=== PATIENT | female | born 1945 | race Caucasian/White ===

== ENCOUNTER → 2017-11-09 | Emergency (ER) | payer MEDICARE, OTHER ==
[~2017-11-09] VITALS: Ht 162.6 cm; Wt 55.0 kg
[~2017-11-09] MED LIST: ALBU18HF2 IH; ASPI-1264 PO; DIPH-423 PO; DIPH25CA83 PO; IBUP-1984 PO; IBUP-1985 PO; LEVO50TA78 PO; PERM60CR4 TP
[2017-11-09 10:01] LABS: BASOPHILS % (AUTO) 0.4 % (0-1); EOSINOPHILS # (AUTO) 0.2 X10'3 (0-0.9); EOSINOPHILS % (AUTO) 2.9 % (0-6); HEMATOCRIT 39.8 % (35.0-45.0); HEMOGLOBIN 13.7 g/dl (12.0-16.0); LYMPHOCYTES # (AUTO) 1.8 X10'3 (1.1-4.8); LYMPHOCYTES % (AUTO) 23.5 % (21-51); MEAN CORPUSCULAR HEMOGLOBIN 32.2 PG (27.0-31.0); MEAN CORPUSCULAR HGB CONC 34.5 % (33.0-36.5); MEAN CORPUSCULAR VOLUME 93.2 FL (78-98); MEAN PLATELET VOLUME 8.1 FL (7.4-10.4); MONOCYTES # (AUTO) 0.5 X10'3 (0-0.9); MONOCYTES % (AUTO) 6.2 % (2-12); NEUTROPHILS # (AUTO) 5.1 X10'3 (1.8-7.7); PLATELET COUNT 200 X10'3 (140-440); RED BLOOD COUNT 4.26 X10'6 (4.20-5.60); RED CELL DISTRIBUTION WIDTH 13.6 % (11.5-14.5); WHITE BLOOD COUNT 7.7 X10'3 (4.5-11.0)
[2017-11-09 10:23] LABS: ALANINE AMINOTRANSFERASE 27 U/L (12-78); ALBUMIN 3.2 G/DL (3.4-5.0); ALBUMIN/GLOBULIN RATIO 0.7 (1.1-1.5); ALKALINE PHOSPHATASE 87 IU/L (46-116); ANION GAP 5 (8-16); ASPARTATE AMINO TRANSFERASE 19 U/L (10-37); BLOOD UREA NITROGEN 17 MG/DL (7-18); BUN/CREATININE RATIO 19.3 (6.6-38.0); CALCIUM 8.7 MG/DL (8.5-10.1); CHLORIDE 105 MMOL/L (99-107); CREATININE 0.88 MG/DL (0.40-0.90); GLUCOSE 97 MG/DL (70-104); MAGNESIUM 1.9 MG/DL (1.5-2.4); POTASSIUM 3.9 MMOL/L (3.5-5.1); SODIUM 142 MMOL/L (135-145); TOTAL CARBON DIOXIDE 32.1 MMOL/L (24-32); TOTAL PROTEIN 7.5 G/DL (6.4-8.2); eGFR 63 ML/MIN
[2017-11-09 11:25] VITALS: BP 120/80
== END | disposition home or self-care (01) ==
LOC: ER 09:26
DX: R07.89 Other chest pain (principal); I25.10 Atherosclerotic heart disease of native coronary artery without angina pectoris; I10 Essential (primary) hypertension; E03.9 Hypothyroidism, unspecified; G89.29 Other chronic pain; Z90.710 Acquired absence of both cervix and uterus; Z90.49 Acquired absence of other specified parts of digestive tract; Z95.0 Presence of cardiac pacemaker; Z59.0 Homelessness; Z56.0 Unemployment, unspecified; Z79.82 Long term (current) use of aspirin; Z79.899 Other long term (current) drug therapy
CPT/HCPCS: 36415; 71045; 80053; 83735; 83880; 84484; 85025; 93005; 99285

== ENCOUNTER 2018-01-19 07:44 | Emergency (ER) | payer MEDICARE, OTHER ==
[~2018-01-19] VITALS: Ht 162.6 cm; Wt 69.7 kg
[2018-01-19 07:50] VITALS: BP 126/66
[2018-01-19] MEDS ORDERED: IPRA30SP (08:38)
== END 2018-01-19 08:55 | disposition home or self-care (01) ==
LOC: ER 07:44
DX: J02.9 Acute pharyngitis, unspecified (principal); R09.82 Postnasal drip; I25.10 Atherosclerotic heart disease of native coronary artery without angina pectoris; I10 Essential (primary) hypertension; E03.9 Hypothyroidism, unspecified; G89.29 Other chronic pain; Z90.49 Acquired absence of other specified parts of digestive tract; Z90.710 Acquired absence of both cervix and uterus; Z95.0 Presence of cardiac pacemaker; Z59.0 Homelessness; Z56.0 Unemployment, unspecified; Z79.82 Long term (current) use of aspirin; Z79.899 Other long term (current) drug therapy
CPT/HCPCS: 99283

== ENCOUNTER 2018-03-13 09:53 | Emergency (ER) | payer MEDICARE, OTHER ==
[~2018-03-13] VITALS: Ht 162.6 cm; Wt 61.4 kg
[~2018-03-13 09:53] MED LIST changes: +IPRA30SP
[2018-03-13 09:56] VITALS: BP 123/95
[2018-03-13] MEDS ORDERED: cephalexin 500mg capsule PO ONE (11:15)
[2018-03-13] MEDS ORDERED: gentamicin 40 MG/1 ML inj IV SCH (11:15)
[2018-03-13] MEDS ORDERED: ibuprofen tablet 400 MG TABLET PO ONE (11:20)
[2018-03-13] MEDS ORDERED: acetaminophen 325mg tablet PO ONE (11:20)
[2018-03-14] MEDS ORDERED: SULF1TAB49 PO (12:02)
[2018-03-14] MEDS ORDERED: CEPH-572 PO (12:02)
== END 2018-03-13 11:47 | disposition left against medical advice (07) ==
LOC: ER 09:53
DX: L03.012 Cellulitis of left finger (principal); I25.10 Atherosclerotic heart disease of native coronary artery without angina pectoris; I10 Essential (primary) hypertension; E03.9 Hypothyroidism, unspecified; Z90.49 Acquired absence of other specified parts of digestive tract; Z90.710 Acquired absence of both cervix and uterus; Z90.89 Acquired absence of other organs; Z59.0 Homelessness; Z56.0 Unemployment, unspecified; Z79.82 Long term (current) use of aspirin; Z79.899 Other long term (current) drug therapy
CPT/HCPCS: 99281; A6449; J1580

== ENCOUNTER 2018-03-14 08:00 | Emergency (ER) | payer MEDICARE, OTHER ==
[~2018-03-14] VITALS: Ht 165.1 cm; Wt 67.0 kg
[2018-03-14 08:10] VITALS: BP 135/102
[2018-03-14] MEDS ORDERED: gentamicin 40 MG/1 ML inj IV ONE (08:40)
[2018-03-14] MEDS ORDERED: cephalexin 500mg capsule PO ONE (08:40)
[2018-03-14] MEDS ORDERED: gentamicin inj 310 MG in normal saline 100ml IV soln 92.25 ML IV ONE (09:45)
[2018-03-14] MEDS ORDERED: CEPH-572 PO (12:02)
[2018-03-14] MEDS ORDERED: SULF1TAB49 PO (12:02)
[2018-03-15] MEDS ORDERED: SULF1TAB49 PO (14:09)
[2018-03-15] MEDS ORDERED: CEPH250T PO (14:09)
== END 2018-03-14 12:35 | disposition home or self-care (01) ==
LOC: ER 08:01
DX: L02.512 Cutaneous abscess of left hand (principal); L03.012 Cellulitis of left finger; I25.10 Atherosclerotic heart disease of native coronary artery without angina pectoris; I10 Essential (primary) hypertension; E03.9 Hypothyroidism, unspecified; Z90.49 Acquired absence of other specified parts of digestive tract; Z90.710 Acquired absence of both cervix and uterus; Z90.89 Acquired absence of other organs; Z95.0 Presence of cardiac pacemaker; Z59.0 Homelessness; Z56.0 Unemployment, unspecified; Z79.82 Long term (current) use of aspirin; Z79.2 Long term (current) use of antibiotics; Z79.1 Long term (current) use of non-steroidal anti-inflammatories (NSAID); Z79.899 Other long term (current) drug therapy
CPT/HCPCS: 10160; 96365; 96366; 99285; A6449; J1580; J7030

== ENCOUNTER 2018-03-15 13:56 | Inpatient (IN) | payer MEDICARE, OTHER ==
[~2018-03-15] VITALS: Ht 165.1 cm; Wt 71.3 kg
[~2018-03-15 13:56] MED LIST changes: +CEPH-572 PO; +SULF1TAB49 PO
[2018-03-15] MEDS ORDERED: SULF1TAB49 PO (14:09)
[2018-03-15] MEDS ORDERED: CEPH250T PO (14:09)
[2018-03-15 15:28] LABS: BASOPHILS % (AUTO) 0.3 % (0-1); EOSINOPHILS % (AUTO) 0.5 % (0-6); HEMATOCRIT 40.6 % (35.0-45.0); HEMOGLOBIN 14.1 g/dl (12.0-16.0); LYMPHOCYTES # (AUTO) 1.4 X10'3 (1.1-4.8); LYMPHOCYTES % (AUTO) 15.7 % (21-51); MEAN CORPUSCULAR HEMOGLOBIN 32.6 PG (27.0-31.0); MEAN CORPUSCULAR HGB CONC 34.7 % (33.0-36.5); MONOCYTES # (AUTO) 0.4 X10'3 (0-0.9); MONOCYTES % (AUTO) 4.5 % (2-12); NEUTROPHILS # (AUTO) 7.2 X10'3 (1.8-7.7); PLATELET COUNT 211 X10'3 (140-440); RED BLOOD COUNT 4.32 X10'6 (4.20-5.60); RED CELL DISTRIBUTION WIDTH 13.5 % (11.5-14.5); WHITE BLOOD COUNT 9.1 X10'3 (4.5-11.0)
[2018-03-15 15:47] LABS: ALANINE AMINOTRANSFERASE 19 U/L (12-78); ALBUMIN 3.4 G/DL (3.4-5.0); ALBUMIN/GLOBULIN RATIO 0.8 (1.1-1.5); ALKALINE PHOSPHATASE 92 IU/L (46-116); ANION GAP 7 (8-16); ASPARTATE AMINO TRANSFERASE 17 U/L (10-37); BILIRUBIN,TOTAL 1.8 MG/DL (0.1-1.0); BLOOD UREA NITROGEN 20 MG/DL (7-18); BUN/CREATININE RATIO 19.4 (6.6-38.0); CALCIUM 9.1 MG/DL (8.5-10.1); CHLORIDE 106 MMOL/L (99-107); CREATININE 1.03 MG/DL (0.40-0.90); GLUCOSE 128 MG/DL (70-104); SODIUM 143 MMOL/L (135-145); TOTAL PROTEIN 7.6 G/DL (6.4-8.2); eGFR 52 ML/MIN
[2018-03-15] MEDS ORDERED: mag hydrox/Alum hydrox/simeth 30ml oral suspension PO PRN (15:50)
[2018-03-15] MEDS ORDERED: HYDROcodone/acetaminophen 10/325mg tab PO PRN (15:50)
[2018-03-15] MEDS ORDERED: magnesium hydroxide 30ml (MOM) UD suspension PO PRN (15:50)
[2018-03-15] MEDS ORDERED: morphine 4 MG/ML inj SYRINge IV PRN ×2 (15:50)
[2018-03-15] MEDS ORDERED: metoclopramide 5 mg/ml inj IV PRN (15:50)
[2018-03-15] MEDS ORDERED: diphenhydrAMINE 25mg capsule PO PRN (15:50)
[2018-03-15] MEDS ORDERED: bisacodyl 10mg suppository rectal RC PRN (15:50)
[2018-03-15] MEDS ORDERED: diphenhydrAMINE 50 mg/ml inj IV PRN (15:50)
[2018-03-15] MEDS ORDERED: acetaminophen 325mg tablet PO PRN ×2 (15:50)
[2018-03-15] MEDS ORDERED: HYDROcodone/acetaminophen 5mg/325mg tablet PO PRN (15:50)
[2018-03-15] MEDS ORDERED: acetaminophen 650mg rectal suppository RC PRN (15:50)
[2018-03-15] MEDS ORDERED: ondansetron/PF 4mg/2ml inj IV PRN (15:50)
[2018-03-15 16:17] LABS: PARTIAL THROMBOPLASTIN TIME 25 SECONDS (22-32); PROTHROMBIN TIME 9.9 SECONDS (9.0-12.0)
[2018-03-15 16:28] LABS: MAGNESIUM 2.1 MG/DL (1.5-2.4)
[2018-03-15] MEDS: normal saline 1000ml 1,000 ML IV SCH ×2 (16:54→22:29)
[2018-03-15] MEDS: ceFAZolin 1GM/D5W- ADD-VANTAGE 50 ML IV SCH (16:55)
[2018-03-15] MEDS ORDERED: temazepam 15mg capsule PO PRN (21:00)
[2018-03-15] MEDS ORDERED: LORazepam 2 mg/ml vial IV ONE (21:00)
[2018-03-15 21:45] VITALS: BP 138/70
[2018-03-15] MEDS: heparin, porcine 5000 units/ml vial SQ SCH (22:29)
[2018-03-15] MEDS: docusate sod 100mg capsule PO SCH (22:29)
[2018-03-15 23:00] VITALS: BP 131/71
[2018-03-16] MEDS: ceFAZolin 1GM/D5W- ADD-VANTAGE 50 ML IV SCH ×4 (00:17→23:49)
[2018-03-16] MEDS: docusate sod 100mg capsule PO SCH ×2 (07:52→20:47)
[2018-03-16] MEDS: heparin, porcine 5000 units/ml vial SQ SCH ×2 (07:53→20:52)
[2018-03-16 08:19] VITALS: BP_SYST 120; BP_SYST 140; BP_DIAS 59; BP_DIAS 81
[2018-03-16 11:21] VITALS: BP 118/64
[2018-03-16] MEDS: normal saline 1000ml 1,000 ML IV SCH ×2 (11:49→21:49)
[2018-03-16] MEDS ORDERED: LORazepam 0.5 MG tablet PO PRN (14:30)
[2018-03-16] MEDS ORDERED: pneumococcal 23-VAL P-sac vacc 25 mcg/0.5ml vial IMVAC ONE (14:35)
[2018-03-16] MEDS ORDERED: MELO7.5T12 PO (18:02)
[2018-03-16] MEDS ORDERED: LEVO50TA PO (18:02)
[2018-03-16] MEDS ORDERED: ALEN70TA15 (18:02)
[2018-03-16 19:00] VITALS: BP 121/64
[2018-03-16] MEDS: lactobacillus rhamnosus 10,000 MMU CELLS/CAPSULE PO SCH (20:47)
[2018-03-17] MEDS: normal saline 1000ml 1,000 ML IV SCH ×2 (02:19→10:21)
[2018-03-17] MEDS: ceFAZolin 1GM/D5W- ADD-VANTAGE 50 ML IV SCH (07:04)
[2018-03-17] MEDS: lactobacillus rhamnosus 10,000 MMU CELLS/CAPSULE PO SCH (07:04)
[2018-03-17] MEDS: docusate sod 100mg capsule PO SCH (07:04)
[2018-03-17] MEDS: heparin, porcine 5000 units/ml vial SQ SCH (07:04)
[2018-03-17 11:00] VITALS: BP 135/75
== END 2018-03-17 16:49 | disposition home or self-care (01) | DRG 603 ==
LOC: ER 13:56 → ED HOLD 15:49 → SUR 3N 21:45
PROVIDERS: ADMIT Family Medicine; ATTEND Family Medicine
DX: L03.012 Cellulitis of left finger (principal); N17.9 Acute kidney failure, unspecified; L02.512 Cutaneous abscess of left hand; E03.9 Hypothyroidism, unspecified; I10 Essential (primary) hypertension; I25.10 Atherosclerotic heart disease of native coronary artery without angina pectoris; G89.29 Other chronic pain; L40.9 Psoriasis, unspecified; R41.89 Other symptoms and signs involving cognitive functions and awareness; J44.9 Chronic obstructive pulmonary disease, unspecified; Z59.0 Homelessness; Z56.0 Unemployment, unspecified; Z90.710 Acquired absence of both cervix and uterus; Z91.14 Patient's other noncompliance with medication regimen; Z95.0 Presence of cardiac pacemaker; Z90.49 Acquired absence of other specified parts of digestive tract; Z81.1 Family history of alcohol abuse and dependence; Z79.899 Other long term (current) drug therapy; Z79.82 Long term (current) use of aspirin; Z79.890 Hormone replacement therapy
CPT/HCPCS: 36415; 73200; 80053; 83735; 83880; 85025; 85610; 85730; 87070; 99285; A6258; J0690; J1644; J2060; J7030

== ENCOUNTER 2018-08-23 08:56 | Emergency (ER) | payer MEDICARE ==
[~2018-08-23] VITALS: Ht 160 cm; Wt 66.4 kg
[~2018-08-23 08:56] MED LIST changes: -ALBU18HF2 IH; +ALEN70TA15; -ASPI-1264 PO; -CEPH-572 PO; -DIPH-423 PO; -DIPH25CA83 PO; -IBUP-1984 PO; -IBUP-1985 PO; +LEVO50TA PO; -LEVO50TA78 PO; +MELO7.5T12 PO; -PERM60CR4 TP; -SULF1TAB49 PO
[2018-08-23 09:29] VITALS: BP 146/72
[2018-08-23] MEDS ORDERED: DOXY100C43 PO (10:14)
== END 2018-08-23 11:01 | disposition home or self-care (01) ==
LOC: ER 08:57
DX: L03.211 Cellulitis of face (principal); I25.10 Atherosclerotic heart disease of native coronary artery without angina pectoris; I10 Essential (primary) hypertension; E03.9 Hypothyroidism, unspecified; G89.29 Other chronic pain; Z90.49 Acquired absence of other specified parts of digestive tract; Z90.710 Acquired absence of both cervix and uterus; Z95.0 Presence of cardiac pacemaker; Z98.890 Other specified postprocedural states; Z59.0 Homelessness; Z56.0 Unemployment, unspecified; Z79.899 Other long term (current) drug therapy
CPT/HCPCS: 99283

== ENCOUNTER 2018-10-08 14:57 | Emergency (ER) | payer MEDICARE, OTHER ==
[~2018-10-08] VITALS: Ht 162.6 cm; Wt 68.2 kg
[2018-10-08 15:15] VITALS: BP 143/78
== END 2018-10-08 16:24 | disposition home or self-care (01) ==
LOC: ER 14:57
DX: S90.122A Contusion of left lesser toe(s) without damage to nail, initial encounter (principal); I25.10 Atherosclerotic heart disease of native coronary artery without angina pectoris; I10 Essential (primary) hypertension; E03.9 Hypothyroidism, unspecified; G89.29 Other chronic pain; Z90.49 Acquired absence of other specified parts of digestive tract; Z90.710 Acquired absence of both cervix and uterus; Z90.89 Acquired absence of other organs; Z95.0 Presence of cardiac pacemaker; Z79.899 Other long term (current) drug therapy; Z87.891 Personal history of nicotine dependence; Z59.0 Homelessness; Z56.0 Unemployment, unspecified; X58.XXXA Exposure to other specified factors, initial encounter; Y93.89 Activity, other specified; Y92.89 Other specified places as the place of occurrence of the external cause; Y99.8 Other external cause status
CPT/HCPCS: 99281